=== PATIENT | female | born 1990 | race Caucasian/White ===

== ENCOUNTER 2018-05-04 01:22 | Emergency (ER) | payer OTHER ==
[2018-05-04] MEDS ORDERED: IPRATROPIUM/ALBUTEROL 3 ML DEYVIAL ONE (01:34)
[2018-05-04] MEDS ORDERED: IPRATROPIUM/ALBUTEROL 3 ML DEYVIAL IH ONE (01:36)
--- NOTE | 2018-05-04 01:37 | EDPHY ---
H & P Stated Complaint: TIGHTNESS IN THROAT, DIFF BREATHING Time Seen by Provider: 05/04/18 01:37 HPI/ROS: HPI CHIEF COMPLAINT: Shortness of breath, sore throat, cough HISTORY OF PRESENT ILLNESS: 27-year-old female, presents emergency room with sore throat that started earlier today getting worse tonight, a cough that sounds somewhat barky, and shortness of breath. She states her throat really hurts her. No fever. She took Tylenol earlier. Denies vomiting, denies chest pain, denies wheezing. No vomiting or diarrhea. Past Medical History: No significant medical history Past Surgical History: No significant surgical history Social History: Denies drugs alcohol tobacco Family History: Noncontributory ROS REVIEW OF SYSTEMS: 10 Systems were reviewed and negative with the exception of the elements mentioned in the history of present illness. Exam Constitutional triage nursing summary reviewed, vital signs reviewed, awake/ alert. Eyes normal conjunctivae and sclera, EOMI, PERRLA. HENT posterior pharynx is erythematous, no significant exudate, no significant swelling normal inspection, atraumatic, moist mucus membranes, no epistaxis, neck supple/ no meningismus, no raccoon eyes. Respiratory barky cough on exam. No wheezing. No stridor. Cardiovascular rate normal, regular rhythm, no murmur, no edema, distal pulses normal. Gastrointestinal soft, non-tender, no rebound, no guarding, normal bowel sounds, no distension, no pulsatile mass. Genitourinary no CVA tenderness. Musculoskeletal no midline vertebral tenderness, full range of motion, no calf swelling, no tenderness of extremities, no meningismus, good pulses, neurovascularly intact. Skin pink, warm, & dry, no rash, skin atraumatic. Neurologic awake, alert and oriented x 3, AAOx3, moves all 4 extremities equally, motor intact, sensory intact, CN II-XII intact, normal cerebellar, normal vision, normal speech. Psychiatric normal mood/affect. Heme/Lymph/Immune no lymphadenopathy. Differential Diagnosis: Includes but is not limited to in a particular order pharyngitis, viral, bacterial, strep, croup, pneumonia, epiglottitis Medical Decision Making: Plan for this patient IV establishment IV fluid bolus , Decadron IV, breathing treatment, chest x-ray, CT soft tissue neck with IV contrast, blood work, IV fluids, and re-evaluate. Re-evaluation: CT soft tissue neck with IV contrast negative for acute epiglottitis or deep space abscess called to me by Dr. Pablo [id number]: Patient re-evaluated this time resting comfortably in no acute distress. Vital signs are stable. She is in no respiratory distress good air movement bilaterally. No stridor. No wheezing. Able swallow appropriately not drooling. CT scan of the soft tissue neck with IV contrast shows no abscess. No evidence of epiglottitis. The patient is nontoxic appearing. She would like to go home. I will provide her prescription for azithromycin, Decadron, and ibuprofen. Return precautions discussed with the patient Return if worsening pain in her throat, trouble breathing, vomiting, high fever questions or concerns. Patient CT scan soft tissue neck with IV contrast reviewed this shows no epiglottitis or deep space neck abscess. The patient is tolerating p.o. Well. No stridor. Vital signs stable. Nontoxic appearing Prescription provided for Decadron, ibuprofen, azithromycin. Return precautions discussed she understands. Chest x-ray one view reviewed negative for pneumonia. Interpreted by myself. Negative RSV Negative influenza Strep pending but rapid negative. Source: Patient - Personal History Current Tetanus Diphtheria and Acellular Pertussis (TDAP): Yes - Medical/Surgical History Hx Asthma: No Hx Chronic Respiratory Disease: No Hx Diabetes: No Hx Cardiac Disease: No Hx Renal Disease: No Hx Cirrhosis: No Hx Alcoholism: No Hx HIV/AIDS: No Hx Splenectomy or Spleen Trauma: No Other PMH: DENIES - Social History Smoking Status: Never smoked Constitutional: Initial Vital Signs Temperature (C) 36.7 C 05/04/18 01:29 Heart Rate 63 05/04/18 01:29 Respiratory Rate 24 H 05/04/18 01:29 Blood Pressure 116/92 H 05/04/18 01:29 O2 Sat (%) 98 05/04/18 01:29 O2 Delivery Mode Room Air O2 (L/minute) 2 Allergies/Adverse Reactions: egg Allergy (Verified 05/04/18 01:28) Home Medications: Medication Instructions Recorded Azithromycin [Zithromax] 250 mg PO DAILY #6 tab 05/04/18 Control 05/04/18 Dexamethasone [Decadron 4 MG (*)] 4 mg PO DAILY #4 tab 05/04/18 Ibuprofen [Motrin (*)] 800 mg PO Q6-8PRN #14 tab 05/04/18 Medical Decision Making - Data Points Laboratory Results: Laboratory Results 05/04/18 02:00 05/04/18 02:00 05/04/18 05/04/18 05/04/18 Unknown 02:45 02:00 WBC RBC Hgb Hct MCV MCH MCHC RDW Plt Count MPV Neut % (Auto) Lymph % (Auto) Gilchrist % (Auto) Eos % (Auto) Baso % (Auto) Nucleat RBC Rel Count Absolute Neuts (auto) Absolute Lymphs (auto) Absolute Monos (auto) Absolute Eos (auto) Absolute Basos (auto) Absolute Nucleated RBC Immature Gran % Immature Gran # RBC/WBC/PLT Morphology Platelet Estimate Sodium 142 mEq/L mEq/L (135-145) Potassium 3.5 mEq/L mEq/L (3.5-5.2) Chloride 110 mEq/L mEq/L (97-110) Carbon Dioxide 19 mEq/l L mEq/l (22-31) Anion Gap 13 mEq/L mEq/L (6-14) BUN 10 mg/dL mg/dL (7-23) Creatinine 0.8 mg/dL mg/dL (0.6-1.0) Estimated GFR > 60 Glucose 87 mg/dL mg/dL (70-100) Calcium 9.5 mg/dL mg/dL (8.5-10.4) Nasal Influenza A PCR NEGATIVE FOR FLU A (NEGATIVE) Nasal Influenza B PCR NEGATIVE FOR FLU B (NEGATIVE) RSV (PCR) NEGATIVE FOR RSV (NEGATIVE) Group A Strep Screen Group A Strep DNA Pending 05/04/18 05/04/18 02:00 01:40 WBC 14.64 10^3/uL H 10^3/uL (3.80-9.50) RBC 4.35 10^6/uL 10^6/uL (4.18-5.33) Hgb 14.1 g/dL g/dL (12.6-16.3) Hct 41.2 % % (38.0-47.0) MCV 94.7 fL fL (81.5-99.8) MCH 32.4 pg pg (27.9-34.1) MCHC 34.2 g/dL g/dL (32.4-36.7) RDW 12.4 % % (11.5-15.2) Plt Count 267 10^3/uL 10^3/uL (150-400) MPV 10.6 fL fL (8.7-11.7) Neut % (Auto) 52.1 % % (39.3-74.2) Lymph % (Auto) 37.8 % % (15.0-45.0) Gilchrist % (Auto) 8.1 % % (4.5-13.0) Eos % (Auto) 1.3 % % (0.6-7.6) Baso % (Auto) 0.5 % % (0.3-1.7) Nucleat RBC Rel Count 0.0 % % (0.0-0.2) Absolute Neuts (auto) 7.63 10^3/uL H 10^3/uL (1.70-6.50) Absolute Lymphs (auto) 5.53 10^3/uL H 10^3/uL (1.00-3.00) Absolute Monos (auto) 1.19 10^3/uL H 10^3/uL (0.30-0.80) Absolute Eos (auto) 0.19 10^3/uL 10^3/uL (0.03-0.40) Absolute Basos (auto) 0.07 10^3/uL 10^3/uL (0.02-0.10) Absolute Nucleated RBC 0.00 10^3/uL 10^3/uL (0-0.01) Immature Gran % 0.2 % % (0.0-1.1) Immature Gran # 0.03 10^3/uL 10^3/uL (0.00-0.10) RBC/WBC/PLT Morphology TNP Platelet Estimate TNP Sodium Potassium Chloride Carbon Dioxide Anion Gap BUN Creatinine Estimated GFR Glucose Calcium Nasal Influenza A PCR Nasal Influenza B PCR RSV (PCR) Group A Strep Screen NEGATIVE (NEGATIVE) Group A Strep DNA Medications Given: Discontinued Medications Albuterol/Ipratropium (Duoneb) 3 ml IH EDNOW ONE Stop: 05/04/18 01:37 Last Admin: 05/04/18 01:37 Dose: 3 ml Dexamethasone (Decadron Injection) 10 mg IVP EDNOW ONE Stop: 05/04/18 01:42 Last Admin: 05/04/18 01:51 Dose: 10 mg Epinephrine (S-2) 0.5 ml IH EDNOW ONE Stop: 05/04/18 01:43 Last Admin: 05/04/18 01:48 Dose: 0.5 ml Sodium Chloride (Ns) 1,000 mls @ 0 mls/hr IV ONCE ONE; Wide Open PRN Reason: Protocol Stop: 05/04/18 01:41 Last Admin: 05/04/18 01:50 Dose: 1,000 mls Sodium Chloride (Ns) 1,000 mls @ 0 mls/hr IV ONCE ONE PRN Reason: Wide Open Stop: 05/04/18 01:43 Last Admin: 05/04/18 03:42 Dose: 1,000 mls Departure - Departure Disposition: Home, Routine, Self-Care Clinical Impression: Pharyngitis Condition: Good Instructions: Pharyngitis (ED) Additional Instructions: 1. Please drink lots of fluids stay well-hydrated 2. Antibiotics as prescribed 3. Steroids, and pain medicine 4. Return to the ER for worsening symptoms. Referrals: NONE *PRIMARY CARE P,. [Primary Care Provider] - As per Instructions Prescriptions: Azithromycin [Zithromax] 250 mg PO DAILY #6 tab Dexamethasone [Decadron 4 MG (*)] 4 mg PO DAILY #4 tab Ibuprofen [Motrin (*)] 800 mg PO Q6-8PRN #14 tab
[2018-05-04] MEDS ORDERED: NS 1,000 ML IV ONE ×2 (01:40→01:42)
[2018-05-04] MEDS ORDERED: DEXAMETHASONE 10 MG/ML VIAL IVP ONE (01:41)
[2018-05-04] MEDS ORDERED: EPINEPHrine RACEMIC INH 0.5 ML DEYVIAL IH ONE (01:42)
[2018-05-04] MEDS ORDERED: DEXAMETHASONE 4 MG/ML VIAL ONE (01:45)
[2018-05-04] MEDS ORDERED: IOPAMIDOL (ISOVUE-300) 100 ML BTL ONE (01:51)
[2018-05-04 02:10] LABS: PLATELET COUNT 267 10^3/uL (150-400)
[2018-05-04 07:50] VITALS: BP 99/64
== END 2018-05-04 07:50 | disposition home or self-care (01) ==
DX: J02.9 Acute pharyngitis, unspecified (principal); E86.9 Volume depletion, unspecified
CPT/HCPCS: 96374; J1100; Q9967